=== PATIENT | male | born 1965 | race Caucasian/White ===

== ENCOUNTER 2017-11-01 13:53 | Emergency (ER) | payer OTHER ==
[~2017-11-01] VITALS: Ht 190.5 cm; Wt 140.6 kg
[~2017-11-01 13:53] MED LIST: AMBIEN10 MG PO; CITALOPRAM HBR40 MG PO; FENOFIBRATE145 MG PO; FISH OIL 1,4001 EACH PO; FLOMAX0.4 MG PO; HUMALOG100 UNIT/1 SUB-Q; LANTUS100 UNIT/1 SUB-Q; LANTUS100 UNITS/ SUB-Q; LISINOPRIL-HCT1 EACH PO; LOVASTATIN40 MG PO; METFORMIN HCL1000 MG PO; METOPROLOL TART50 MG PO; OXYCODONE HCL5 MG PO; TYLENOL PM EX-1 EACH PO
[2017-11-01] MEDS ORDERED: NORCO 7.5-3251 EACH PO (16:23)
== END 2017-11-01 23:03 | disposition home or self-care (01) ==
LOC: ED 13:53
DX: S82.141A Displaced bicondylar fracture of right tibia, initial encounter for closed fracture (principal); E11.9 Type 2 diabetes mellitus without complications; I10 Essential (primary) hypertension; E78.00 Pure hypercholesterolemia, unspecified; Z88.5 Allergy status to narcotic agent; Z79.4 Long term (current) use of insulin; Z79.899 Other long term (current) drug therapy; W23.0XXA Caught, crushed, jammed, or pinched between moving objects, initial encounter
CPT/HCPCS: 73560; 73700; 99284

== ENCOUNTER 2020-03-24 06:30 | Emergency (ER) | payer OTHER, BC ==
[~2020-03-24] VITALS: Ht 190.5 cm; Wt 140.6 kg
[~2020-03-24 06:30] MED LIST changes: +ASPIR-LOW81 MG PO; +CHOLESTYRAMINE P4 GM PO; +CYMBALTA60 MG PO; +DOXYCYCLINE HY100 MG PO; +FUROSEMIDE40 MG PO; +HUMALOG100 UNIT/2 SUB-Q; +IRON18 MG PO; +LASIX80 MG PO; +LEVOTHYROXINE25 MCG PO; +LIPITOR80 MG PO; +LISINOPRIL40 MG PO; +METOPROLOL TAR100 MG PO; +MIRALAX17 GM PO; +NIACIN250 M2 PO; +NORCO 7.5-3251 EACH PO; +POTASSIUM CHLO10 ME1 PO; +SENNA LAX8.6 MG PO; +VITAMIN D5000 UNI1 PO; +ZYLOPRIM300 MG PO
--- OUTSIDE RECORDS SUMMARY | 2020-03-24 06:32 | XMS ---
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 ENessa VISIT COUNT (12 MO.) 1 JONNA Kruse TOTAL 1 NOTE: Visits indicate total known visits. ED/UCC VISIT TRACKING (12 MO.) 03/24/2020 06:30 JONNA Luna OR TYPE: Emergency COMPLAINT: - L HAND RING FINGER LACERATION INPATIENT VISIT TRACKING (12 MO.) No inpatient visits to display in this time frame [email or web address]
[2020-03-24] MEDS ORDERED: NORCO 7.5-3251 EACH PO (08:00)
[2020-03-24] MEDS ORDERED: KEFLEX500 MG PO (08:00)
== END 2020-03-24 08:11 | disposition home or self-care (01) ==
LOC: ED 06:30
DX: S67.195A Crushing injury of left ring finger, initial encounter (principal); S62.634A Displaced fracture of distal phalanx of right ring finger, initial encounter for closed fracture; S61.215A Laceration without foreign body of left ring finger without damage to nail, initial encounter; E11.9 Type 2 diabetes mellitus without complications; I10 Essential (primary) hypertension; Z88.5 Allergy status to narcotic agent; Z79.899 Other long term (current) drug therapy; X58.XXXA Exposure to other specified factors, initial encounter
CPT/HCPCS: 12002; 73140; 99283-25; A9270

== ENCOUNTER 2024-08-01 14:21 | Emergency (ER) | payer BC ==
[~2024-08-01] VITALS: Ht 190.5 cm; Wt 141.9 kg
[~2024-08-01 14:21] MED LIST changes: +KEFLEX500 MG PO
[2024-08-01] MEDS ORDERED: OZEMPIC0.25 MG/02 SQ (15:20)
[2024-08-01] MEDS ORDERED: GABAPENTIN300 MG PO (15:21)
[2024-08-01] MEDS ORDERED: TRAZODONE HCL150 MG PO (15:21)
[2024-08-01] MEDS ORDERED: PREVALITE PACKET4 GM PO (15:21)
[2024-08-01] MEDS ORDERED: LIDOCAINE HCL 4% 1 EACH PATCH TD ONE (16:00)
[2024-08-01] MEDS ORDERED: KETOROLAC TROMETHAMINE 30 MG/ML VIAL IV ONE (16:00)
[2024-08-01] MEDS ORDERED: diazePAM 10 MG/2 ML SYR IV ONE (16:00)
[2024-08-01] MEDS ORDERED: KETOROLAC TROME10 MG PO (18:13)
[2024-08-01] MEDS ORDERED: CYCLOBENZAPRINE10 MG PO (18:13)
[2024-08-01] MEDS ORDERED: PERCOCET 5-3251 EACH PO (18:13)
[2024-08-01] MEDS ORDERED: ONDANSETRON ODT8 MG SL (18:13)
[2024-08-01] MEDS ORDERED: LIDODERM1 EACH TOP (18:14)
[2024-08-01] MEDS ORDERED: OXYCODONE/ACETAMINOPHEN 1 TAB HOME.PACK PO ONE (18:15)
[2024-08-01] MEDS ORDERED: CYCLOBENZAPRINE HCL 10 MG HOME.PACK PO ONE (18:15)
[2024-08-01] MEDS ORDERED: ONDANSETRON 4 MG HOME.PACK SL ONE (18:15)
[2024-08-01 18:20] VITALS: BP 158/85
[2024-08-01] MEDS ORDERED: LIDOCAINE PATCH REMOVAL 1 EA TD SCH (21:00)
== END 2024-08-01 18:30 | disposition home or self-care (01) ==
LOC: ED 14:21
DX: S39.012A Strain of muscle, fascia and tendon of lower back, initial encounter (principal); E11.9 Type 2 diabetes mellitus without complications; I10 Essential (primary) hypertension; E78.00 Pure hypercholesterolemia, unspecified; X58.XXXA Exposure to other specified factors, initial encounter; Z79.82 Long term (current) use of aspirin; Z79.899 Other long term (current) drug therapy; Z79.84 Long term (current) use of oral hypoglycemic drugs; Z88.5 Allergy status to narcotic agent
CPT/HCPCS: 96374; 96375; 99283-25; A9270; J1885; J3360

== ENCOUNTER 2025-05-15 06:55 | Day surgery (SDC) | payer BC ==
[2025-05-12 14:58] VITALS: BP 139/77
[~2025-05-15] VITALS: Ht 190.5 cm; Wt 137.0 kg
[~2025-05-15 06:55] MED LIST changes: +CYCLOBENZAPRINE10 MG PO; +GABAPENTIN300 MG PO; +IRON325 M1 PO; +KETOROLAC TROME10 MG PO; +LACTATED RINGER'S 1,000 ML IV SCH; +LIDODERM1 EACH TOP; +ONDANSETRON ODT8 MG SL; +OZEMPIC0.25 MG/02 SQ; +PERCOCET 5-3251 EACH PO; +PREVALITE PACKET4 GM PO; +TRAZODONE HCL150 MG PO
[2025-05-15] MEDS ORDERED: LIDOCAINE HCL 1% 5 ML SDV INJ ONE (07:00)
[2025-05-15] MEDS ORDERED: IBLOOD GLUCOSE TEST STRIP 1 EA TEST VI PRN (07:00)
[2025-05-15] MEDS ORDERED: CEFAZOLIN SODIUM 3 GM/30 ML SYR IV SCH (07:00)
[2025-05-15] MEDS ORDERED: CHOLESTYRAMINE378 GM PO (07:10)
[2025-05-15] MEDS ORDERED: ACTOS30 MG PO (07:12)
[2025-05-15 07:24] VITALS: BP 140/75
--- NOTE | 2025-05-15 07:25 | NUR ---
PT NOT AVAILABLE FOR VISIT. PROVIDED PRAYER.
--- NOTE | 2025-05-15 10:23 | NUR ---
05/15/25 Fanny3 Georgette Hayden 1016-PATIENT ARRIVED TO PACU ON RA RR EVEN. PATIENT NONAROUSABLE LAYING LEFT LATERAL ABDOMEN SOFT. IVF INFUSING. SR HR 70'S.
[2025-05-15 11:00] VITALS: BP 142/80
== END 2025-05-15 11:00 | disposition home or self-care (01) ==
LOC: OPS 06:55 → DS 06:55 → OPS 08:30
PROVIDERS: ATTEND Surgery
PROC: 0DB78ZX Excision of Stomach, Pylorus, Via Natural or Artificial Opening Endoscopic, Diagnostic (ICD-10-PCS; 2025-05-15)
PROC: 0DBF8ZX Excision of Right Large Intestine, Via Natural or Artificial Opening Endoscopic, Diagnostic (ICD-10-PCS; principal; 2025-05-15 08:30)
PROC: 0DBL8ZX Excision of Transverse Colon, Via Natural or Artificial Opening Endoscopic, Diagnostic (ICD-10-PCS; 2025-05-15 08:30)
DX: I12.9 Hypertensive chronic kidney disease with stage 1 through stage 4 chronic kidney disease, or unspecified chronic kidney disease (principal); E11.22 Type 2 diabetes mellitus with diabetic chronic kidney disease; N18.30 Chronic kidney disease, stage 3 unspecified; D63.1 Anemia in chronic kidney disease; D12.2 Benign neoplasm of ascending colon; D12.3 Benign neoplasm of transverse colon; K63.5 Polyp of colon; K57.30 Diverticulosis of large intestine without perforation or abscess without bleeding; K29.70 Gastritis, unspecified, without bleeding; I25.10 Atherosclerotic heart disease of native coronary artery without angina pectoris; E78.1 Pure hyperglyceridemia; E11.42 Type 2 diabetes mellitus with diabetic polyneuropathy; E03.8 Other specified hypothyroidism; G47.33 Obstructive sleep apnea (adult) (pediatric); N52.9 Male erectile dysfunction, unspecified; Z79.84 Long term (current) use of oral hypoglycemic drugs; Z79.890 Hormone replacement therapy; Z79.899 Other long term (current) drug therapy; Z88.5 Allergy status to narcotic agent
CPT/HCPCS: 00813; 36415; 87077; J0690; J2704; J7121